=== PATIENT | female | born 1965 | race Caucasian/White ===

== ENCOUNTER → 2017-04-11 | Outpatient (CLI) | payer BC ==
[2005-01-27 09:42] VITALS: TEMP 97.7
== END ==
LOC: MC.RAD 11:11
DX: Z12.31 Encounter for screening mammogram for malignant neoplasm of breast (principal)

== ENCOUNTER → 2018-05-31 | Outpatient (CLI) | payer BC ==
[2005-01-27 09:42] VITALS: TEMP 97.7
== END ==
LOC: MC.RAD 14:26
DX: Z12.31 Encounter for screening mammogram for malignant neoplasm of breast (principal)

== ENCOUNTER → 2019-06-01 | Outpatient (CLI) | payer BC ==
[2005-01-27 09:42] VITALS: TEMP 97.7
== END ==
LOC: MC.RAD 11:02
DX: Z12.31 Encounter for screening mammogram for malignant neoplasm of breast (principal)

== ENCOUNTER → 2020-07-23 | Outpatient (CLI) | payer BC ==
[2005-01-27 09:42] VITALS: TEMP 97.7
[~2020-07-23] MED LIST: PRINZIDE 12.5 M1 TAB PO; TOPROL XL100 MG PO
== END ==
LOC: MC.RAD 12:59
DX: Z12.31 Encounter for screening mammogram for malignant neoplasm of breast (principal)

== ENCOUNTER 2021-02-14 09:22 | Emergency (ER) | payer BC ==
[~2021-02-14] VITALS: Ht 170.2 cm; Wt 96.8 kg
[2021-02-14 09:29] VITALS: BP 163/90; PULSE 101; TEMP 98.9
[2021-02-14] MEDS ORDERED: TOPROL XL100 MG PO (09:34)
[2021-02-14] MEDS ORDERED: PRINZIDE 12.5 M1 TAB PO (09:35)
== END 2021-02-14 10:08 | disposition home or self-care (01) ==
LOC: COL.ER 09:22
DX: R53.81 Other malaise (principal); T50.B95A Adverse effect of other viral vaccines, initial encounter; I10 Essential (primary) hypertension; Z79.899 Other long term (current) drug therapy

== ENCOUNTER → 2021-07-24 | Outpatient (CLI) | payer BC ==
[2005-01-27 09:42] VITALS: TEMP 97.7
== END ==
LOC: MC.RAD 12:55
DX: Z12.31 Encounter for screening mammogram for malignant neoplasm of breast (principal)

== ENCOUNTER → 2023-08-23 | Outpatient (CLI) | payer BC ==
[2005-01-27 09:42] VITALS: TEMP 97.7
== END ==
LOC: MC.RAD 09:54
DX: Z12.31 Encounter for screening mammogram for malignant neoplasm of breast (principal)